=== PATIENT | female | born 1940 | race Caucasian/White ===

== ENCOUNTER 2017-07-03 15:54 | Inpatient (IN) | payer OTHER ==
[~2017-07-03] VITALS: Ht 160 cm; Wt 65.3 kg
[2017-07-03 15:54] VITALS: BP_SYST 140
[~2017-07-03 15:54] MED LIST: DOCU-144 PO; LEVO137T20 PO; NORCO5 PO; SIMV40TA2 PO
[2017-07-03] MEDS ORDERED: NACL 0.9% 1,000 ML IV ONE (15:58)
[2017-07-03] MEDS ORDERED: MORPHINE 2 MG/ML INJ. SYRINGE IVP ONE ×2 (16:15→17:45)
[2017-07-03 16:46] LABS: BASOPHILS # (AUTO) 0.1 K/uL (0.0-0.2); BASOPHILS % (AUTO) 0.6 % (0.0-2.0); EOSINOPHILS # (AUTO) 0.1 K/uL (0.0-0.4); EOSINOPHILS % (AUTO) 0.8 % (0.0-4.0); HEMATOCRIT 38.1 % (36-48); HEMOGLOBIN 13.3 g/dL (12.0-16.0); LYMPHOCYTES # (AUTO) 0.6 K/uL (1.0-5.5); LYMPHOCYTES % (AUTO) 6.3 % (20.5-51.5); MEAN CORPUSCULAR HEMOGLOBIN 31 pg (27-31); MEAN CORPUSCULAR HGB CONC 35 % (32-36); MEAN CORPUSCULAR VOLUME 87 fL (79.0-98.0); MONOCYTES # (AUTO) 0.9 K/uL (0.0-1.0); MONOCYTES % (AUTO) 9.3 % (1.7-9.3); NEUTROPHILS # (AUTO) 8.5 K/uL (1.8-7.7); PLATELET COUNT (AUTO) 157 K/uL (130-430); RED BLOOD CELL COUNT(AUTO) 4.36 MIL/uL (4.2-6.2); RED CELL DISTRIBUTION WIDTH 12.9 % (9.0-15.0); WHITE BLOOD COUNT (AUTO) 10.2 K/uL (4.8-10.8)
[2017-07-03 16:55] LABS: ANION GAP 6 (5-15); CALCIUM 8.8 mg/dL (8.4-11.0); CHLORIDE 104 mmol/L (98-107); CREATININE 0.95 mg/dL (0.55-1.30); GLUCOSE 131 mg/dL (70-99); POTASSIUM 3.9 mmol/L (3.5-5.1); SODIUM SERUM 139 mmol/L (136-145); UREA NITROGEN, BLOOD 17 mg/dL (8-21)
[2017-07-03 16:58] LABS: INR 0.9 (0.8-1.2); PROTHROMBIN TIME 9.4 SECS (9.5-12.5)
[2017-07-03 17:03] LABS: ALANINE AMINOTRANSFERASE 17 U/L (12-78); ALBUMIN 3.2 g/dL (3.4-4.8); ASPARTATE AMINOTRANSFERASE 16 U/L (10-37); TOTAL BILIRUBIN 0.7 mg/dL (0.0-1.0)
[2017-07-03] MEDS ORDERED: ACETAMINOPHEN 325 MG TABLET PO PRN ×2 (18:15)
[2017-07-03] MEDS ORDERED: IPRATROPIUM BROM 0.5 MG/2.5 ML VIAL.NEB (ATROVENT) INH PRN (18:30)
[2017-07-03] MEDS ORDERED: ALBUTEROL SULFATE 0.083% 2.5 MG/3 ML VIAL.NEB INH PRN (18:30)
[2017-07-03 19:10] VITALS: BP_SYST 120
[2017-07-03 20:00] VITALS: BP_SYST 120
[2017-07-03 20:17] VITALS: BP_SYST 120
[2017-07-03] MEDS: DOCUSATE SODIUM 100 MG CAPSULE PO SCH (21:55)
[2017-07-03] MEDS: ZOLPIDEM TARTRATE 5 MG TABLET PO SCH (21:55)
[2017-07-03] MEDS: SIMVASTATIN 40 MG TABLET PO SCH (21:56)
[2017-07-03] MEDS: ALPRAZolam 0.25 MG TABLET PO PRN (21:56)
[2017-07-03] MEDS ORDERED: IOHEXOL 350 mgI/mL, 150 ML INFUS..BTL IV ONE (21:57)
[2017-07-04 00:49] VITALS: BP_SYST 102
[2017-07-04] MEDS: MORPHINE 2 MG/ML INJ. SYRINGE IVP PRN ×4 (02:16→18:47)
[2017-07-04 04:47] VITALS: BP_SYST 131
[2017-07-04] MEDS: LEVOTHYROXINE SODIUM 0.075 MG TABLET PO SCH ×2 (07:00→08:23)
[2017-07-04 08:00] VITALS: BP_SYST 138
[2017-07-04] MEDS: ASPIRIN 325 MG TABLET (ECOTRIN) PO SCH (08:23)
[2017-07-04] MEDS: DOCUSATE SODIUM 100 MG CAPSULE PO SCH ×2 (08:23→20:55)
[2017-07-04 12:52] VITALS: BP_SYST 140
[2017-07-04 16:15] VITALS: BP_SYST 139
[2017-07-04 20:00] VITALS: BP_SYST 127
[2017-07-04] MEDS: ZOLPIDEM TARTRATE 5 MG TABLET PO SCH (20:55)
[2017-07-04] MEDS: SIMVASTATIN 40 MG TABLET PO SCH (20:55)
[2017-07-04] MEDS: ALPRAZolam 0.25 MG TABLET PO PRN (22:12)
[2017-07-05 00:59] VITALS: BP_SYST 128
[2017-07-05 04:43] VITALS: BP_SYST 124
[2017-07-05] MEDS: LEVOTHYROXINE SODIUM 0.075 MG TABLET PO SCH (06:03)
[2017-07-05 08:00] VITALS: BP_SYST 132
[2017-07-05] MEDS: MORPHINE 2 MG/ML INJ. SYRINGE IVP PRN ×2 (08:18→13:27)
[2017-07-05] MEDS: ASPIRIN 325 MG TABLET (ECOTRIN) PO SCH (08:38)
[2017-07-05] MEDS: DOCUSATE SODIUM 100 MG CAPSULE PO SCH (08:39)
[2017-07-05 12:15] VITALS: BP_SYST 139
[2017-07-05 12:27] VITALS: BP_SYST 92
== END 2017-07-05 15:10 | disposition home or self-care (01) | DRG 200 ==
LOC: SED 15:54 → STU 18:02
PROVIDERS: ADMIT Internal Medicine Hospice and Palliative Medicine; ATTEND Internal Medicine Hospice and Palliative Medicine
DX: J95.811 Postprocedural pneumothorax (principal); C78.00 Secondary malignant neoplasm of unspecified lung; C14.0 Malignant neoplasm of pharynx, unspecified; E03.9 Hypothyroidism, unspecified; E78.5 Hyperlipidemia, unspecified; I10 Essential (primary) hypertension; Z85.818 Personal history of malignant neoplasm of other sites of lip, oral cavity, and pharynx; Z92.3 Personal history of irradiation; Z87.891 Personal history of nicotine dependence; Z92.21 Personal history of antineoplastic chemotherapy; Z90.49 Acquired absence of other specified parts of digestive tract; Z80.52 Family history of malignant neoplasm of bladder; Z80.0 Family history of malignant neoplasm of digestive organs; Z82.5 Family history of asthma and other chronic lower respiratory diseases
CPT/HCPCS: 36415; 71010; 71275; 80053; 84484; 85025; 85610-TC; 85730-TC; 93005; 96361; 96374; 99285; J2270; Q9967